=== PATIENT | female | born 1970 | race Caucasian/White ===

== ENCOUNTER 2020-10-27 14:36 | Emergency (ER) | payer OTHER ==
[~2020-10-27 14:36] MED LIST: ALL DAY ALLERGY10 M2 PO; ALPRAZOLAM0.5 MG PO; FAMOTIDINE40 MG PO; HYDROCHLOROTHIA25 MG PO; KEFLEX CAP 500500 MG PO; LIPITOR TAB 1010 MG PO; NITROSTAT0.4 MG SL; OMEPRAZOLE40 MG PO; PROBIOTIC1 EAC1 PO; SINGULAIR10 MG PO; VITAMIN D250000 UNIT PO; VITAMIN D350000 UNIT PO; ZESTRIL40 MG PO
== END 2020-10-27 17:12 | disposition home or self-care (01) ==
LOC: ER1 14:36
DX: S39.012A Strain of muscle, fascia and tendon of lower back, initial encounter (principal); S83.91XA Sprain of unspecified site of right knee, initial encounter; I10 Essential (primary) hypertension; E78.5 Hyperlipidemia, unspecified; Z90.89 Acquired absence of other organs; F17.200 Nicotine dependence, unspecified, uncomplicated; X50.1XXA Overexertion from prolonged static or awkward postures, initial encounter
CPT/HCPCS: 72072; 72100; 73562; 96372; 99283; J1885; J2360

== ENCOUNTER → 2020-12-16 | Outpatient (CLI) | payer OTHER | LOC: KOH-I 09:45 | DX: M25.561 Pain in right knee (principal); M51.36 Other intervertebral disc degeneration, lumbar region; M47.817 Spondylosis without myelopathy or radiculopathy, lumbosacral region; M53.9 Dorsopathy, unspecified; M54.5 Low back pain; R93.7 Abnormal findings on diagnostic imaging of other parts of musculoskeletal system; Y99.0 Civilian activity done for income or pay | CPT/HCPCS: 72148; 73721 ==

== ENCOUNTER → 2021-02-27 | Outpatient (CLI) | payer OTHER | LOC: KOH-I 02-25 13:00 | DX: M50.122 Cervical disc disorder at C5-C6 level with radiculopathy (principal); M47.22 Other spondylosis with radiculopathy, cervical region | CPT/HCPCS: 72141 ==

== ENCOUNTER → 2022-01-26 | Outpatient (CLI) | payer BC | LOC: KOH-I 15:42 | DX: R41.89 Other symptoms and signs involving cognitive functions and awareness (principal) | CPT/HCPCS: 70551 ==